=== PATIENT | female | born 1930 | race Caucasian/White ===

== ENCOUNTER → 2016-10-10 | Outpatient (CLI) | payer MEDICARE, MEDICAID ==
[~2016-10-10] MED LIST: AMOXICILLIN 50500 MG PO; ASCORBIC ACID500 M2 PO; ATENOLOL25 M1 PO; BACTROBAN23 TP; BENAZEPRIL HYDR10 MG PO; BUMETANIDE 1MG T1 MG PO; CLINDAMYCIN300 MG PO; DIABETA2.5 M1 PO; DILANTIN 100MG100 MG PO; DILANTIN100 MG PO; DITROPAN 5MG TAB5 MG PO; DOCUSATE NA250 MG PO; FENOGLIDE40 MG PO; FERROUS SULFAT325 M2 PO; FISH OIL CONC1000 MG PO; FUROCOT40 MG PO; HYDROCODONE1 TABLET PO; IRON TABLETS325 M1 PO; LEVOTHYROXINE0.05 M2 PO; METFORMIN1000 MG PO; MIRALAX17 GM/PACK PO; NEURONTIN 300M300 MG PO; NITROSTAT0.4 MG SL; OXYBUTYNIN CHLOR5 MG PO; POLYETHYLENE GL; RANITIDINE HCL150 MG PO; SEROQUEL25 MG PO; SERTRALINE 100100 MG PO; ST. JOSEPH81 M1 PO; TAMIFLU30 MG PO; TOVIAZ8 MG PO; VITAMIN B11000 MCG/M IM; VITAMIN D50000 I1 PO
[2016-10-10 10:14] LABS: LYMPH # 1.4 K/mm3 (0.7-4.5); LYMPH % 22.3 % (10-50.0)
[2016-10-10 10:15] LABS: HEMOGLOBIN 14.3 g/dL (12.2-16.2)
== END ==
LOC: LAB 09:49
PROVIDERS: Internal Medicine Adolescent Medicine
DX: E53.8 Deficiency of other specified B group vitamins (principal)

== ENCOUNTER → 2016-11-05 | Outpatient (CLI) | payer MEDICARE, MEDICAID ==
--- NOTE | 2016-11-05 11:32 | CARDIOVASCULAR REPORT ---
"Venous Exam Indications: 729.81 Swelling of limb. 729.5 Pain in limb. IMPRESSIONS 1. There is no evidence of significant Reflux. 2. No evidence of deep or superficial vein thrombosis involving the left lower extremity Left lower extremity venous duplex evaluation. Doppler flow study including spectral analysis, color and diallo scale imaging. Location: Vascular laboratory. Patient status: Outpatient. Tables: Venous flow and imaging: + +-------+ + |Location |Overall|Flow properties | + +-------+ + |Left common femoral |Patent |Normal phasicity; spontaneous; | | | |normal augmentation; compressible | + +-------+ + |Left saphenofemoral junction|Patent |Compressible | + +-------+ + |Left profunda femoral |Patent |Compressible | + +-------+ + |Left femoral |Patent |Normal phasicity; spontaneous; | | | |normal augmentation; compressible | + +-------+ + |Left greater saphenous |Patent |Normal phasicity; spontaneous; | | | |normal augmentation; compressible | + +-------+ + |Left popliteal |Patent |Normal phasicity; spontaneous; | | | |normal augmentation; compressible | + +-------+ + |Left posterior tibial |Patent |Compressible | + +-------+ + |Left peroneal |Patent |Compressible | + +-------+ + |Left gastrocnemius |Patent |Compressible | + +-------+ + |Left soleal |Patent |Compressible | + +-------+ + (Report amended ) Electronically signed by: Daniel Brannon [id number]"
--- NOTE | 2016-11-05 13:55 | RADIOLOGY REPORT PS360 ---
ANKLE-LT-3 VIEWS HISTORY: Pain following injury worse laterally LEFT ANKLE PAIN ORDERING PHYSICIAN: JORDAN TRAN APRN PATIENT AGE: 86 years COMPARISON: None FINDINGS: No fracture or dislocation. No lytic or blastic change. There is normal mineralization.. The joint spaces are well-preserved. No significant degenerative/arthritic changes. No erosive changes evident. There is mild soft tissue swelling laterally. There are minimal hypertrophic changes of the medial malleolus tip. Incidental vascular calcification. IMPRESSION: No acute fracture
== END ==
LOC: RAD 11:09
DX: M25.572 Pain in left ankle and joints of left foot (principal); R60.0 Localized edema; M79.662 Pain in left lower leg

== ENCOUNTER → 2017-05-12 | Outpatient (CLI) | payer MEDICARE, MEDICAID ==
[~2017-05-12] MED LIST changes: +FUROSEMIDE40 MG; +LASIX 80MG. TAB80 MG; +LIPITOR40 MG; +MAGNESIUM OXID400 MG; +TRIAMCINOLON 0.15 GM
--- NOTE | 2017-05-12 15:27 | RADIOLOGY REPORT PS360 ---
CARDIOLITE SPECT MYOCARDIAL PERFUSION SCAN, REST AND STRESS: EXERCISE STRESS [facility] REVIEW QGS EF AND WALL MOTION EVALUATION: QPS - PERFUSION EVALUATION HISTORY: Chest pain, SOB, Syncope, Fatigue, CAD, Hx of ME DOSE: 10.80 mCi technetium 99m mibi intravenously at rest followed by 32.0 mCi technetium 99m mibi following the intravenous ministration of 0.4 mg of Lexiscan. Resting blood pressure is 124/66. Stress blood pressure 112/66. FINDINGS: Ejection fraction is calculated to be 78%. Stress images reveal decreased activity in the mid anterior apical wall which do improve with rest. Gated images calculated ejection fraction of 78% with normal wall motion IMPRESSION: Clinical correlation is advised however this appears to be an abnormal study suggesting anterior ischemia. Hyperdynamic ejection fraction and hyperdynamic wall motion
--- NOTE | 2017-05-12 15:27 | RADIOLOGY REPORT PS360 ---
CARDIOLITE SPECT MYOCARDIAL PERFUSION SCAN, REST AND STRESS: EXERCISE STRESS [facility] [place] REVIEW QGS EF AND WALL MOTION EVALUATION: QPS - PERFUSION EVALUATION HISTORY: Chest pain, SOB, Syncope, Fatigue, CAD, Hx of AR DOSE: 10.80 mCi technetium 99m mibi intravenously at rest followed by 32.0 mCi technetium 99m mibi following the intravenous ministration of 0.4 mg of Lexiscan. Resting blood pressure is 124/66. Stress blood pressure 112/66. FINDINGS: Ejection fraction is calculated to be 78%. Stress images reveal decreased activity in the mid anterior apical wall which do improve with rest. Gated images calculated ejection fraction of 78% with normal wall motion IMPRESSION: Clinical correlation is advised however this appears to be an abnormal study suggesting anterior ischemia. Hyperdynamic ejection fraction and hyperdynamic wall motion
== END ==
LOC: RAD 11:11
DX: R07.9 Chest pain, unspecified (principal); I25.10 Atherosclerotic heart disease of native coronary artery without angina pectoris
CPT/HCPCS: A9502; J2785